=== PATIENT | female | born 1990 | race Caucasian/White ===

== ENCOUNTER → 2020-12-17 | Outpatient (CLI) | payer OTHER ==
[~2020-12-17] MED LIST: COLACE 100MG C100 MG PO; GABAPENTIN300 MG PO; IBUPROFEN600 MG PO; LINZESS290 MCG PO; PRENATAL VITAM1 EAC5 PO; PRENATAL VITAM1 EAC8 PO; SUBUTEX 8 MG TAB8 MG SL; TYLENOL 325MG325 MG PO; VIBRAMYCIN100 MG PO
[2020-12-17 14:04] LABS: HEMOGLOBIN 12.8 gm/dl (12.3-15.3); RED BLOOD COUNT 4.18 M/UL (4.00-5.10); WHITE BLOOD COUNT 8.6 K/UL (4.5-11.0)
[2020-12-17 14:32] LABS: BUN/CREATININE RATIO 17 (0-10)
[2020-12-18 08:14] LABS: HIV SCREEN 4TH GENERATION WRFX Non Reactive (Non Reactive)
[2020-12-18 10:14] LABS: HBSAG SCREEN Negative (Negative); HEP A AB, IGM Negative (Negative); HEP B CORE AB, IGM Negative (Negative); HEP C VIRUS AB >11.0 (0.0-0.9)
== END ==
LOC: LAB 13:15
PROVIDERS: Nurse Practitioner Psychiatric/Mental Health
DX: F11.20 Opioid dependence, uncomplicated (principal)
CPT/HCPCS: 80053; 80061; 80074; 83036; 84443; 85027; 87389

== ENCOUNTER 2021-08-20 20:49 | Emergency (ER) | payer OTHER | END 2021-08-20 21:47 | disposition left against medical advice (07) | LOC: ER1 20:49 | DX: Z53.21 Procedure and treatment not carried out due to patient leaving prior to being seen by health care provider (principal) | CPT/HCPCS: 93005 ==

== ENCOUNTER → 2021-10-07 | Outpatient (CLI) | payer OTHER ==
[2021-10-08 10:15] LABS: A/G RATIO 1.8 (1.2-2.2); ALKALINE PHOSPHATASE, S 75 IU/L (44-121); ALT (SGPT) 17 IU/L (0-32); AST (SGOT) 23 IU/L (0-40); BILIRUBIN, TOTAL <0.2 mg/dL (0.0-1.2); BUN 15 mg/dL (6-20); BUN/CREATININE RATIO 22 (9-23); CALCIUM, SERUM 9.2 mg/dL (8.7-10.2); CARBON DIOXIDE, TOTAL 14 mmol/L (20-29); CHLORIDE, SERUM 109 mmol/L (96-106); CHOLESTEROL, TOTAL 170 mg/dL (100-199); CREATININE, SERUM 0.67 mg/dL (0.57-1.00); EGFR IF AFRICN AM 137 (>59); EGFR IF NONAFRICN AM 119 (>59); GLOBULIN, TOTAL 2.5 g/dL (1.5-4.5); GLUCOSE, SERUM 84 mg/dL (65-99); HDL CHOLESTEROL 60 mg/dL (>39); LDL CHOLESTEROL CALC 96 mg/dL (0-99); LDL/HDL RATIO 1.6 ratio (0.0-3.2); POTASSIUM, SERUM 4.9 mmol/L (3.5-5.2); SODIUM, SERUM 138 mmol/L (134-144); T. CHOL/HDL RATIO 2.8 ratio (0.0-4.4); TRIGLYCERIDES 77 mg/dL (0-149)
[2021-10-08 11:15] LABS: FOLATE (FOLIC ACID), SERUM 14.7 ng/mL (>3.0)
== END ==
LOC: LAB 13:46
PROVIDERS: Nurse Practitioner Family
DX: G62.9 Polyneuropathy, unspecified (principal); F41.1 Generalized anxiety disorder; I73.00 Raynaud's syndrome without gangrene
CPT/HCPCS: 36415; 80053; 80061; 82607; 82746; 86038

== ENCOUNTER 2022-01-29 21:34 | Emergency (ER) | payer OTHER | END 2022-01-29 23:45 | disposition left against medical advice (07) | LOC: ER1 21:34 | DX: Z53.21 Procedure and treatment not carried out due to patient leaving prior to being seen by health care provider (principal) ==

== ENCOUNTER 2022-04-15 17:39 | Emergency (ER) | payer OTHER ==
[2022-04-15] MEDS ORDERED: AUGMENTIN XR 11 EACH PO (20:35)
== END 2022-04-15 21:05 | disposition home or self-care (01) ==
LOC: ER1 17:39
DX: S90.862A Insect bite (nonvenomous), left foot, initial encounter (principal); L03.116 Cellulitis of left lower limb; F17.210 Nicotine dependence, cigarettes, uncomplicated; Z88.6 Allergy status to analgesic agent; Z88.2 Allergy status to sulfonamides; W57.XXXA Bitten or stung by nonvenomous insect and other nonvenomous arthropods, initial encounter
CPT/HCPCS: 96372; 99283; J1885